=== PATIENT | female | born 1960 | race Caucasian/White ===

== ENCOUNTER 2020-05-21 13:50 | Emergency (ER) | payer BC, SELFPAY ==
[2020-05-22 03:18] LABS: SARS-CoV-2 MS2 Positive; SARS-CoV-2 N Gene Negative; SARS-CoV-2 S Gene Negative; SARS-CoV-2 by NAA Not Detected (NotDetected); SARS-CoV-2 orf1ab Negative
== END 2020-05-21 14:25 | disposition home or self-care (01) ==
LOC: NAV ERS 13:50
DX: J02.9 Acute pharyngitis, unspecified (principal); R05 Cough; M79.10 Myalgia, unspecified site; Z20.828 Contact with and (suspected) exposure to other viral communicable diseases; E78.5 Hyperlipidemia, unspecified; Z79.899 Other long term (current) drug therapy; G43.909 Migraine, unspecified, not intractable, without status migrainosus
CPT/HCPCS: 87635; 99283; U0003

== ENCOUNTER 2024-12-30 13:04 | Outpatient (CLI) | payer OTHER | END 2024-12-30 13:05 | disposition home or self-care (01) | LOC: NAV RAD 13:04 | PROVIDERS: ATTEND Student in an Organized Health Care Education/Training Program | DX: M76.61 Achilles tendinitis, right leg (principal); M77.31 Calcaneal spur, right foot; M19.071 Primary osteoarthritis, right ankle and foot ==

== ENCOUNTER 2025-02-25 10:38 | Outpatient (CLI) | payer OTHER | END 2025-02-25 10:39 | disposition home or self-care (01) | LOC: NAV RAD 10:38 | PROVIDERS: ATTEND Student in an Organized Health Care Education/Training Program | DX: J40 Bronchitis, not specified as acute or chronic (principal) | CPT/HCPCS: 71046 ==